=== PATIENT | male | born 1960 ===

== ENCOUNTER 2017-12-01 06:11 | Day surgery (SDC) | payer OTHER ==
[~2017-12-01] VITALS: Ht 180.3 cm; Wt 77.1 kg
[~2017-12-01 06:11] MED LIST: ASPIRIN81 MG PO; LISINOPRIL2.5 MG PO; LOPRESSOR25 MG PO
[2017-12-01 10:16] VITALS: BP 130/83
== END 2017-12-01 09:50 | disposition home or self-care (01) | DRG 352 ==
LOC: ORM 06:11
PROVIDERS: ATTEND Surgery
PROC: 0YU50JZ Supplement Right Inguinal Region with Synthetic Substitute, Open Approach (ICD-10-PCS; principal; 2017-12-01)
DX: K40.90 Unilateral inguinal hernia, without obstruction or gangrene, not specified as recurrent (principal)
CPT/HCPCS: C9290